=== PATIENT | male | born 1995 | race American Indian/Alaskan Native ===

== ENCOUNTER 2021-10-13 03:24 | Emergency (ER) | payer OTHER, MEDICAID ==
[~2021-10-13] VITALS: Ht 188 cm; Wt 72.6 kg
[2021-10-13 03:28] VITALS: BP 148/79
--- NOTE | 2021-10-13 03:33 | NUR ---
Patient ambulated to bed 6.
[2021-10-13] MEDS ORDERED: LIDOCAINE/EPI 2% 1:100000 20 ML VIAL INJ ONE ×2 (03:45→03:48)
--- NOTE | 2021-10-13 03:45 | NUR ---
25 Y/O BIBS FROM WORK, C/O LEFT THUMB LACERATION X30 MINUTES AGO. PT STATES HE WAS AT WORK USING A INOCULATOR TO OPEN BAGS AT WORK WHEN HE CUT HIS THUMB. CMS INTACT, BLEEDING CONTROLED. A/OX4, GCS-15; UNLABORED BREATHING; AMBULATORY. DENIES PMH/RX NKA
--- NOTE | 2021-10-13 03:57 | NUR ---
Dr. White examining patient.
[2021-10-13] MEDS ORDERED: BACITRACIN OINT 500 UNITS/GM PKT TP ONE (04:10)
[2021-10-13] MEDS ORDERED: NAPR-54 PO (04:19)
[2021-10-13 04:33] VITALS: BP 144/80
--- NOTE | 2021-10-13 04:37 | NUR ---
Patient discharged with v/s stable. Written and verbal after care instructions given and explained. Patient alert, oriented and verbalized understanding of instructions. Ambulatory with steady gait. All questions addressed prior to discharge. ID band removed. Patient advised to follow up with PMD. Rx of NAPROSYN given. Patient educated on indication of medication including possible reaction and side effects. Opportunity to ask questions provided and answered. VSS, A/OX4, UNLABORED BREATHING, AMBULATORY, AND CALM DEMEANOR.
== END 2021-10-13 04:37 | disposition home or self-care (01) ==
LOC: MED 03:24
DX: S61.012A Laceration without foreign body of left thumb without damage to nail, initial encounter (principal); W26.0XXA Contact with knife, initial encounter; Y93.89 Activity, other specified; Y92.89 Other specified places as the place of occurrence of the external cause; Y99.8 Other external cause status
CPT/HCPCS: 12002; 99283; J2001